=== PATIENT | male | born 2005 | race Caucasian/White ===

== ENCOUNTER 2025-01-20 09:51 | Outpatient (AMB) | payer OTHER, SELFPAY ==
--- NOTE | 2025-01-20 09:55 | A.OFFPC_ITS ---
Vital Signs 01/20/25 10:11 Height 5 ft 8.7 in Weight 196 lb 2 oz BMI 29.2 BP 102/64 Blood Pressure Location Lt brachial Position Sitting Respiration 15 Pulse 50 Pulse Source Pulse Oximeter Temp 97.7 F Temp Source Temporal Artery Scan Pulse Oximetry (%) 97 Oxygen Delivery Method Room Air Intake Visit Reasons: TIME RECORDER CPE Intake Note: Feliciano presents in the office today to establish care. Allergies amphetamine (From Adderall) Allergy (Verified 01/20/25 10:01) Creating a tic cat dander Allergy (Verified 01/20/25 10:01) Rash dextroamphetamine (From Adderall) Allergy (Verified 01/20/25 10:01) Creating a tic Medication List - Last Reconciled 01/20/25 by Shailesh Lal MD cetirizine 10 mg PO DAILY PRN cholecalciferol (vitamin D3) 25 mcg PO DAILY guanfacine ER 4 mg PO DAILY melatonin 10 mg PO BEDTIME PRN methylphenidate HCl 10 mg PO DAILY methylphenidate HCl ER (Concerta) 54 mg PO QAM trazodone 50 mg PO BEDTIME PRN Tobacco use date assessed: 01/20/25 Dental Screening Dental Screen Date: 01/20/25 Did you have a dental visit in the last 12 months?: No Did you have a dental problem in the last 6 months where you did not have access to dental care?: No Was dental information given to patient?: Patient has dentist HPI TIME RECORDER CPE HPI Details New patient Prior PCP: Lisa. Last office visit/CPE: 1 yr ago Acute issue(s): Concern for GERD & Afib ? GERD - cough c/o racing heartbeat at home PMHx: Autism, ADHD, SurgHx: None FHx: Dad: (Dad is Kemar Solis) CAD, Ischemic Cardiomyopathy, Heart Failure, HTN, HLD. PFSH Medical History (Updated 01/20/25 @ 10:48 by Shailesh Lal MD) Concussion Family History (Updated 01/20/25 @ 10:10 by Juhi Santa CMA) Mother Asthma Hypertension Hyperlipidemia Diabetes Cardiovascular disease FH: mental illness Depression with anxiety Maternal Grandmother Hypertension Hyperlipidemia Cardiovascular disease Personality disorder Father Hyperlipidemia Cardiovascular disease Substance abuse Alcoholism Sister Personality disorder Social History (Updated 01/20/25 @ 10:11 by Juhi Santa CMA) Housing: House Alcohol intake: never Patient Tobacco Use Status: Never used Tobacco e-Cigarette/Vaping Use: Never Used Second Hand Smoke Exposure: No Use of substances other than those prescribed or required for medical reasons: No service: No Current occupational status: employed Current occupation: [employer] Current occupational exposures/hazards: No Cognitive needs: No Hearing needs: No Vision needs: No Questionnaire PHQ-9 Over the last 2 weeks, how often have you been bothered by any of the following problems? 1. Little interest or pleasure in doing things: not at all 2. Feeling down, depressed, or hopeless: not at all 3. Trouble falling or staying asleep, or sleeping too much: not at all 4. Feeling tired or having little energy: several days 5. Poor appetite or overeating: not at all 6. Feeling bad about yourself - or that you are a failure or have let yourself or your family down: not at all 7. Trouble concentrating on things, such as reading the newspaper or watching television: not at all 8. Moving or speaking so slowly that other people could have noticed. Or the opposite - being so fidgety or restless that you have been moving around a lot more than usual: not at all 9. Thoughts that you would be better off or of hurting yourself in some way : not at all Total score: 1 Depression Screening Interpretation: Negative Depression Screening Done: Yes 31784 - PHQ-9 Billing: Yes Source: Developed by Drs. Tobias Abdul, Lovely Beltran, Atilio Gibson and colleagues, with an educational antoinette from [employer]. Thrive Questionnaire Date Thrive assessed: 01/20/25 I am a: Patient What is your living situation today?: I have a steady place to live Within the past 12 months, did the food you bought not last and you didn't have the money to get more?: Sometimes True Within the past 12 months, did you worry whether your food would run out before you got money to buy more?: Sometimes True Do you have trouble paying for medicines?: No Do you have trouble getting transportation to medical appointments?: No Do you have trouble paying your heating and electricity bill?: No Do you have trouble taking care of your child, family member or friend?: I choose not to answer this question Do you have trouble with day-to-day activities such as bathing, preparing meals, shopping, managing finances, etc.?: No Are you currently unemployed and looking for a job?: No Are you interested in more education?: I choose not to answer this question Please select the resources that you would like help with: Food Currently or been in a relationship where the following occur: No concerns reported THRIVE Score: 2 AUDIT C Alcohol Use Questionnaire (AUDIT-C) 1. How often do you have a drink containing alcohol?: Never 3. How often do you have six or more drinks on one occasion?: Never Total Score: 0 KIRBY-7 AMB Questionnaire KIRBY-7 Date KIRBY - 7 assessed: 01/20/25 Feeling nervous, anxious, or on edge: 0 = Not at all Not being able to stop or control worryin = Not at all Worrying too much about different things: 0 = Not at all Trouble relaxin = Not at all Being so restless that it is hard to sit still: 0 = Not at all Becoming easily annoyed or irritable: 0 = Not at all Feeling afraid as if something awful might happen: 0 = Not at all Total KIRBY-7 score (0-4 normal; 5-9 mild; 10-14 moderate; 15-21 severe): 0 Source: Developed by Drs. Tobias Abdul, Lovely Beltran, Atilio Gibson and colleagues, with an educational antoinette from [employer]. KIRBY-7 Assessment Billing KIRBY-7 Assessment Tool: KIRBY-7 Assessment 77564 Review of Systems Const Denies chills, Denies fatigue, Denies fever(s), Denies headache(s) and Denies weakness ENT Denies dizziness and Denies headache(s) Card Denies chest pain, Denies lightheadedness, Denies dyspnea and Denies other (Palpitations) Resp Denies cough, Denies dyspnea, Denies wheezing and Denies other ( shortness of breath) Musc Denies numbness and Denies tingling Neuro Denies dizziness, Denies headache(s), Denies numbness, Denies tingling, Denies paresthesias and Denies weakness Psych Denies anxiety and Denies depression Endo Denies fatigue Aller/Immun Denies wheezing Physical exam (Primary Care) Vital Signs: Last Vital Signs Temp 97.7 F 01/20/25 10:11 Pulse 50 01/20/25 10:11 Resp 15 01/20/25 10:11 BP 102/64 01/20/25 10:11 Pulse Ox 97 01/20/25 10:11 Oxygen Delivery Method Room Air 01/20/25 10:11 BMI result Body Mass Index 29.2 Tobacco/Smoking Status: Tobacco use Status Tobacco use date assessed 01/20/25 01/20/25 10:15 Patient Tobacco Use Status Never used Tobacco 01/20/25 10:15 e-Cigarette/Vaping Use Never Used 01/20/25 10:15 PHQ-9: PHQ-9 Score PHQ-9: Total score 1 01/20/25 10:26 Depression Screening Interpretation: Negative Thrive Assessment: Date of Thrive Assessment Date Thrive assessed 01/20/25 01/20/25 09:57 Currently or been in a relationship where the following occur: No concerns reported Const General: no acute distress and well developed Nutritional Appearance: well nourished Orientation/consciousness: patient oriented x3 HENMT Head: Yes normocephalic and Yes atraumatic Eyes General: appearance normal, both eyes and all related structures Pupils: Equal, round and reactive pupils present EOM: EOMs intact bilaterally Resp Effort & Inspection: normal respiratory effort Auscultation: clear to auscultation bilaterally Cardio Rate: regular rate Rhythm: regular rhythm Heart sounds: S1 normal heart sound present, S2 normal heart sound present, no gallops, no murmurs and no rubs Neuro General: patient oriented x3 and gait normal Cranial nerves: Yes Equal, round and reactive pupils present Psych Affect: normal affect Coding Level of Care Code New Pt Level 3 (78135) Diagnoses Cough R05.9 GERD (gastroesophageal reflux disease) K21.9 Autism F84.0 Difficulty concentrating R41.840 Racing heart beat R00.0 Laboratory exam ordered as part of routine general medical examination Z00.00 Additional Codes KIRBY-7 Assessment Billing - KIRBY-7 Assessment Tool: KIRBY-7 Assessment [id number] ([id number]) PHQ-9 - 39846 - PHQ-9 Billing: Yes ([id number]) Assessment & Plan Assessment & Plan (1) Cough: Code(s): R05.9 - Cough, unspecified Category: Medical (2) GERD (gastroesophageal reflux disease): Code(s): K21.9 - Gastro-esophageal reflux disease without esophagitis Category: Medical (3) Autism: Code(s): F84.0 - Autistic disorder Category: Medical (4) Difficulty concentrating: Code(s): R41.840 - Attention and concentration deficit Category: Medical (5) Racing heart beat: Code(s): R00.0 - Tachycardia, unspecified Category: Medical (6) Laboratory exam ordered as part of routine general medical examination: Code(s): Z00.00 - Encounter for general adult medical examination without abnormal findings Category: Medical Plan 19-year-old male presents with mom as new patient Complaint of frequent dry cough Lungs are clear to auscultation Will check x-ray He is already on cetirizine and should continue this Trial famotidine to GERD as underlying cause If not improving and chest x-ray unrevealing, get function testing may have cough variant asthma History of facial take with Adderall. (Now switched to methylphenidate); may have a neurogenic cough Patient has complaints of ?racing heartbeat? Cardiac exam normal to auscultation EKG shows sinus bradycardia with sinus arrhythmia, normal axis, no hypertrophy, no ST-T-wave changes. Patient is able to exercise Reassured pt Patient has autism and difficulty concentrating, likely ADHD. He is psych med provider Appears well controlled on current medications Follow-up with psych med provider as recommended Orders: Orders Complete Blood Count Auto Diff Today Z00.00 - Encounter for general adult medical examination without abnormal findings Lipid Panel Today Z00.00 - Encounter for general adult medical examination without abnormal findings TSH reflex Free T4 Today Z00.00 - Encounter for general adult medical examination without abnormal findings HIV Ab/Ag Today Z11.3 - Encounter for screening for infections with a predominantly sexual mode of transmission Vitamin B12 and Folate Today E53.8 - Deficiency of other specified B group vitamins Vitamin D 25-OH Total Today E55.9 - Vitamin D deficiency, unspecified Comprehensive Harmony. Panel Fast Today Z00.00 - Encounter for general adult medical examination without abnormal findings Microalbumin, Random (w Creat) Today I10 - Essential (primary) hypertension UA CC w/rflx Micro + Cult Today Z00.00 - Encounter for general adult medical examination without abnormal findings CT NG by PCR Urine Today Z11.3 - Encounter for screening for infections with a predominantly sexual mode of transmission Hepatitis B,C Profile Today Z11.3 - Encounter for screening for infections with a predominantly sexual mode of transmission Syphilis Screen Today Z11.3 - Encounter for screening for infections with a predominantly sexual mode of transmission XR chest 2V Today R05.9 - Cough, unspecified Medications: New famotidine 20 mg PO BID 60 tabs 2RF 30 days
[2025-01-20 10:11] VITALS: BP 102/64; PULSE 50; RESP 15; TEMP 36.5; O2SAT 97; BMI 29.2
--- OUTSIDE RECORDS SUMMARY | 2025-01-20 10:33 | XMS_ITS ---
[facility] Name [facility] Organization Unknown Care Team Organization Name Specialty Phone Email Start Date End Da te [facility] MEENU [facility] 02/25/2022 12/07/2023
--- OUTSIDE RECORDS SUMMARY | 2025-01-20 10:33 | XMS_ITS | Clinical Summary ---
Author Organization [facility] [address] [place] [address] [place] [id number] Phone Care Team Providers Care Mental Health Unit Lead Psychologist Name Role Phone Jeff Rangel MD Primary Care Provider Allergies Active Allergy Reactions Criticality Noted Date Comments Amphetamine 05/17/2015 ticks Medications multivitamin (MULTIPLE VITAMINS ORAL) Take 1 tablet by mouth 1 (one) time each day. 03/05/20 23 Active cetirizine (ZyrTEC) 10 mg tablet TAKE 1 TABLET BY MOUTH EVERY DAY 90 tablet 3 03/10/20 24 Active methylphenidat e (Concerta) 54 mg 24 hr tablet Take 1 tablet (54 mg total) by mouth 1 (one) time each day in the morning. Take 1 tablet (54 mg total) by mouth 1 (one) time each day in the morning. Prescription provided by psychiatrist from [facility]. Max Daily Amount: 54 mg 03/31/20 24 Active guanFACINE (INTUNIV) 4 mg 24 Hour ER tablet Take 5 mg by mouth. Takes one 5 mg tablet in morningStrength : 4 mg. Prescription provided by psychiatrist from [facility]. 03/31/20 24 Active methylphenidat e (RITALIN) 10 mg tablet TAKE 1 TABLET BY MOUTH AT 3:00PM FOR ADHD. Prescription provided by psychiatrist from [facility] 03/31/20 24 Active traZODone (DESYREL) 50 mg tablet Take 1 tablet (50 mg total) by mouth at bedtime. Take 1 tablet (50 mg total) by mouth at bedtime. Scription provided by psychiatrist at [facility] 03/31/20 24 Active melatonin 5 mg tablet TAKE 1-2 TABLET BY MOUTH AT BEDTIME. Prescription provided by psychiatrist at [facility]. 03/31/20 24 Active Vitamin D3 25 mcg (1,000 unit) tablet TAKE 1 TABLET BY MOUTH EVERY DAY 90 tablet 01/21/20 25 Active Vitamin D3 25 mcg (1,000 unit) tablet TAKE 1 TABLET BY MOUTH EVERY DAY 90 tablet 1 07/19/19 25 025 Discontinued Active Problems Problem Noted Date Diagnosed Date Vitamin D deficiency 09/10/2022 Prediabetes 09/10/2022 Elevated LDL cholesterol level 09/10/2022 Dental caries 09/10/2022 Chronic throat clearing 01/03/2020 Overview (02/26/2024): 01/07 Thsi could be a tic, but even with negative NE panel he has improved withth e Cetirizine OCD (obsessive compulsive disorder) 01/31/2016 Overview (02/26/2024): 10/31/10 Autism 01/31/2016 Overview (02/26/2024): 09/05/10 ADHD (attention deficit hype ractivity disorder), combined type 01/30/2015 Overview (02/26/2024): Followed [facility] with Ernestina Meeks doing his meds (01/2018) and in therapy with Bonifacio Reed Immunizations Immunization Administration Dates Next Due DTaP (Infanrix) 6wks to less than 7yo 03/29/2010 ,06/29/2006 YMcE-PCF-UTC (Pentacel) 2mo to less than 5yo 2005 CKbM-ZbsS-RXG (Pediarix) 6 w ks to less than 7yo 2005,2005 Hepatitis B Pediatric (Enger ix B; Recombivax HB) to less than 20 yo 2005 HiB 06/29/2006,2005,2005 IPV Inactivated polio (Ipol) 6wks and older 03/29/2010 Influenza trivalent, 0.5mL, preservative free (Fluarix; FluLaval; Fluzone) ages 6mo and older (Afluria) 3 years and older 03/05/2020,03/04/2019,02/16/2018,02/09,02/01/2016 Influenza trivalent, MDCK, 0 .5mL, preservative free (Flucelvax) 6mo and older 03/31/2024 Influenza trivalent, with pr eservative (Fluzone; Afluria) 6mo and older 03/29/2010,03/27/2008,04/22/2007,03/24,04/23/2006,03/19/2006 Influenza, live, intranasal, trivalent (FluMist) 2yo to less than 50yo 01/30/2015 MMR, measles mumps and rubel la Live (Priorix; M-M-R II) 12mo and older 03/30/2009 MMRV, measles mumps rubella and varicella live (Proquad) 4yo to less than 7yo 03/19/2006 Meningococcal Conjugate (Men veo) MenACWY 11yo to less than 19 yo 09/10/2022 Meningococcal MCV4P 02/16/2018 [employer] SARS-CoV-2 COVID-19, mRNA, LNP-S, preservative free 02/25/2021,02/04/2021 Pneumococcal Conjugate Vacci ne, 7 Valent 06/29/2006,2005,2005,05/20 Tdap Tetanus diptheria acell ular pertussis (Boostrix; Adacel) 7yo and older 02/09/2017 Varicella live (Varivax) 12m o and older 03/30/2009 Surgical History Surgery Date Site/Laterality Comments OTHER SURGICAL HISTORY PROCEDURE: DENIES PREVIOUS SURGERY Medical History Medical History Date Comments Autism disorder DX:Autism disord er History of concussion 01/31/2016 DX:History of concussion; COMMENT: 02/22/11 [facility] No LOC ADHD (attention deficit hype ractivity disorder), combined type 01/30/2015 DX:ADHD (attention deficit hyperactivity disorder), combined type PDD (pervasive developmental disorder) 01/31/2016 DX:PDD (pervasive developmen jose disorder); COMMENT: 09/05/10 OCD (obsessive compulsive disorder) 10/31/10 DX:OCD (obsessive compulsive disorder) Chronic throat clearing 01/03/2020 DX:Chron ic throat clearing; COMMENT: 01/07 Thsi could be a tic, but even with negative NE panel he has improved withth e Cetirizine Family History Medical History Relation Name Comments Diabetes Father Heart attack Father Relation Name Status Comments Father Alive DM, COPD, HTN, chol Maternal Grandmother COPD Mother Alive DM, asthma, HTN Paternal Grandfather COPD Paternal Grandmother DM Sister Alive maternal half s ister; depression, borderline Social History Tobacco Use Types Packs/Day Years Used Date Smoking Tobacco: Never Smokeless Tobacco: Never Tobacco Cessation:Counseling Given: Not Answered Alcohol Use Standard Drinks/Week Comments Not Asked 0 (1 standard drink = 0.6 oz pur e alcohol) Housing Instability Answer Date Recorde d Are you worried that in the next 2 months you may not have stable housing? Yes 03/31/2024 Food Access & Nutrition Answer Date Rec orded Do you have access to a vari ety of food including fruits and vegetables? Yes 03/31/2024 Health Literacy Answer Date Recorded How often do you need to hav e someone help you when you read instructions, pamphlets, or other written material from your doctor or pharmacy? Rarely 03/31/2024 Caregiver: How often do you need to have someone help you when you read instructions, pamphlets, or other written material from your doctor or pharmacy? Not on file 03/31/2024 Financial Risk Answer Date Recorded How hard is it for you to pa y for the very basics like food, housing, medical care, and air conditioning / heating? Not very hard 03/31/2024 Transportation Answer Date Recorded Has the lack of transportati on kept you from meetings, work, or from getting things needed for daily living? No Has the lack of transportati on kept you from medical appointments or from getting medications? No 03/31/2024 Social Isolation Answer Date Recorded How often do you feel lonely or isolated from those around you? Sometimes 03/31/2024 Food Risk Answer Date Recorded Within the past 12 months we worried whether our food would run out before we got money to buy more. Sometimes true 024 Within the past 12 months th e food we bought just didn't last and we didn't have money to get more. Never true 03/31/2024 Dependent Care Answer Date Recorded Do you need help finding or paying for care for your loved ones. For example, children's ministries director or elderly care for an older adult? No 03/31/2024 Education Answer Date Recorded Do you think completing more education or training, like finishing a GED, going to college, or learning a trade, would be helpful for you? No 03/31/2024 Employment and Income Answer Date Recor ded During the last four weeks, have you been actively looking for work? No 03/31/2024 Living Situation Answer Date Recorded What is your living situation? Unrecognized valu e 03/31/2024 Sex and Gender Information Value Date Recorded Sex Assigned at Not on file Legal Sex Male 4:25 PM EST Gender Identity Not on file Sexual Orientation Not on file Obstetrics History Growth Chart Information Age Height Weight Gnnwzx-jiz-fwnv th Percentile BMI Percentile Head Circum Head Circum Percentile Date 19 years 172.7 cm (5' 8 ) 93 kg (205 lb) 95.82%* 2023 17 years 174.5 cm (5' 8.7 ) 105 kg (231 lb 6.4 oz) 98.12%* 2022 17 years 174.5 cm (5' 8.7 ) 105 kg (232 lb) 98.24%* 2022 16 years 174.5 cm (5' 8.7 ) 106 kg (233 lb 12.8 oz) 98.47%* 2021 16 years 99.9 kg (220 lb 4.8 oz) 2021 15 years 171.5 cm (5' 7.5 ) 93.1 kg (205 lb 5 oz) 97.43%* 2020 14 years 168 cm (5' 6.14 ) 81.4 kg (179 lb 8 oz) 96.33%* 2019 14 years 79.8 kg (176 lb) 2019 14 years 65.7 kg (144 lb 14.4 oz) 2018 13 years 162.6 cm (5' 4 ) 66 kg (145 lb 9.6 oz) 93.24%* 2018 13 years 57.2 kg (126 lb 1 oz) 2018 13 years 153.7 cm (5' 0.5 ) 53.5 kg (118 lb) 88.07%* 2018 13 years 153.7 cm (5' 0.5 ) 53.5 kg (118 lb) 88.08%* 2018 12 years 150.7 cm (4' 11.35 ) 47.2 kg (104 lb) 78.49%* 2017 12 years 147.3 cm (4' 10 ) 41.7 kg (92 lb) 69.01%* 2017 11 years 143.5 cm (4' 8.5 ) 39.5 kg (87 lb) 70.60%* 2016 11 years 39.6 kg (87 lb 6.4 oz) 2016 11 years 40.8 kg (90 lb) 2016 11 years 40.1 kg (88 lb 4.8 oz) 2016 * [facility] (Boys, 2-20 Years) Last Filed Vital Signs Vital Sign Reading Time Taken Comments Blood Pressure 113/70 03/31/2024 4:04 PM EST Pulse 74 03/31/2024 4:04 PM EST Temperature 36.6 C (97.9 F) 03/31/2024 4:04 PM EST Respiratory Rate 18 03/31/2024 4:04 PM EST Oxygen Saturation - - Inhaled Oxygen Concentration - - Weight 93 kg (205 lb) 03/31/2024 4:04 PM EST Height 172.7 cm (5' 8 ) 03/31/2024 4:04 PM EST Body Mass Index 31.17 03/31/2024 4:04 PM EST Plan of Treatment Health Maintenance Due Date Last Done Comments HPV Vaccines (1 - Male 3-dose series) 2020 Meningococcal B Vaccine (1 of 2 - Standard) 2021 Depression Screening 04/20/2024 COVID-19 Vaccine (3 - season) 2024 02/25/2021, 02/04/2021 Influenza Vaccine (#1) 2024 , 03/05/2020, 03/04/2019, Additional history exists Annual Well Child Visit (3-21 years old) 03/31/2025 03/31/2024, 09/10/2022, 03/15/2021, Additional history exists Social Influencers of Health Screening 03/31/2025 03/31/2024 DTaP,Tdap,and Td Vaccines (7 - Td or Tdap) 02/09/2027 02/09/2017, 03/29/2010, 06/29/2006, Additional history exists RSV Immunization Adult Patients (1 - 1-dose 75+ series) 2080 Hepatitis B Vaccines Completed 2005, 2005, 2005, Additional history exists HIB Vaccines Completed 06/29/2006, 06/18, 2005, Additional history exists Pneumococcal Vaccine: Pediatrics (0 to 5 Years) and At-Risk Patients (6 to 49 Years) Completed 06/29/2006, 2005, 2005, Additional history exists MMR Vaccines Completed 03/30/2009, 03/19/2006 Varicella Vaccines Completed 03/30/2009, 03/19/2006 IPV Vaccines Completed 03/29/2010, 06/18, 2005, Additional history exists Meningococcal ACWY Vaccine Completed 09/10/2022, HIV Screening Discontinued Hepatitis A Vaccines Aged Out No long er eligible based on patient's age to complete this topic Hepatitis C Screening Discontinued RSV Immunization Patients Under 20 months Aged Out No longer eligible based on patient's age to complete this topic Insurance [facility] Care Teams Mental Health Unit Lead Psychologist Relationship Specialty Start Date End Date Jeff Rangel MD [address] [place] [phone] PCP - General 07/09/23
== END 2025-01-20 11:00 | disposition home or self-care (01) ==
LOC: HO.HMCFM 09:52
PROVIDERS: PCP Family Medicine; Visit Provider Family Medicine
DX: R05.9 Cough, unspecified (principal); R00.0 Tachycardia, unspecified; K21.9 Gastro-esophageal reflux disease without esophagitis; F84.0 Autistic disorder; R41.840 Attention and concentration deficit

== ENCOUNTER → 2025-01-20 09:51 | Outpatient (BNVA) | payer OTHER, SELFPAY | PROVIDERS: PCP Family Medicine; Visit Provider Family Medicine | DX: Z00.00 Encounter for general adult medical examination without abnormal findings (principal); K21.9 Gastro-esophageal reflux disease without esophagitis; F84.0 Autistic disorder; R41.840 Attention and concentration deficit; R05.9 Cough, unspecified; R00.0 Tachycardia, unspecified; E53.8 Deficiency of other specified B group vitamins; E55.9 Vitamin D deficiency, unspecified; I10 Essential (primary) hypertension | CPT/HCPCS: 93005; 96127; 99202 ==